=== PATIENT | male | born 1940 | race Caucasian/White ===

== ENCOUNTER 2024-07-26 09:33 | Outpatient (RCR) | payer MEDICARE, OTHER, SELFPAY ==
--- NOTE | 2024-07-04 15:05 | ST.OPIE ---
Visit Care Team Role Provider Type Brianna Escobedo MD Attending Provider Non-Staff Family Provider Primary Care Provider Referring Provider Specialty: Internal Medicine Address: [address] [place] [address], [place], [place], [facility] Email: Speech-Language Pathology Initial Evaluation MALE MODEL Adult Cognitive Linguistic Eval Start: 07/04/24 14:36 Freq: Status: Active Protocol: Document 07/04/24 14:36 SS (Rec: 07/04/24 15:05 SS [id number]) Adult Cognitive Linguistic Evaluation Session Time Visit Start Time 13:45 Visit Stop Time 14:30 Total Visit Minutes 45 Visit Information Visit Number 1 Plan of Care Dates 07/04/24-10/03/24 Insurance Information Medicare (kx modifier after 19 visits) Referral Referring Provider Brianna Escobedo Reason for Referral Subdural hematoma follow-up Setting Assessment Location Outpatient Care Visit Type Note Type Initial evaluation Next Note Type Next Note Type Treatment Note Patient Information Identification Type Name Patient History Darien Logan is an 84-year-old male presenting to this clinic for an MALE MODEL evaluation of cognition s/p subdural hematoma at the referral of Dr Freda Escobedo. Pt was hospitalized at [facility] for subdural hematoma evacuation 06/10-06/17 following fall resulting in head trauma. Per pt and family, CT scan following procedure did not show additional bleeding. Pt reported no other significant medical and surgical history other than hearing loss, heart valve procedure, and knee replacement. Pt reported he did not receive speech therapy services at the time of his hospitalization. Per pt report , he is still independently performing IADLs, including medication management and financial retirement plan specialist. Pt?s partner expressed mild concern with his short-term memory, though denied change from baseline. Additionally, pt denied changes to speech, language, voice, and swallowing function. He currently lives at home with his partner, Ale, and is retired from working as an chemical engineering technologist. Education Level BS Occupation Status Retired from [employer] Hearing Hearing Level Hearing Aids Vision Vision Status Not Impaired Previous Therapy Previous Speech-Language Therapy No Subjective Patient Report Pt arrived to the session on time. He is accompanied by his partner Ale and daughter Yanira. He was engaged and motivated throughout. He was able to provide case history without difficulty. No changes noted to speech, language, or voice during informal assessment. Mental Status Alert,Responsive,Cooperative Assessment Oral Motor Examination Completed No Results No concerns for oral motor structure/function at this time. Speech was 100% intelligible and oral and facial structures appeared symmetrical and functioning WNL. Informal Assessment Receptive Language Normal Yes Expressive Language Normal Yes Pragmatic Language Normal Yes Speech Normal Yes Cognition Normal No Cognitive Impairment(s) Short-term memory Formal Assessment Standardized Test/Screener Type Cognitive Linguistic Quick Test (CLQT) Administration Complete Results The Cognitive Linguistic Quick Test (CLQT) was administered to obtain information regarding the patient?s cognitive abilities. The CLQT assesses five cognitive domains: attention, memory, executive functioning, language, and visuospatial skills. A domain and severity rating is then calculated. Scores fall within a WNL ( within normal limits) to severe range describing the patient?s level of impairment. Additionally, a composite severity range is calculated. A composite severity score of 3.5-4.0 is WNL, 2.5 -3.4 is mild, 1.5-2.4 is moderate, and 1.0-1.4 is severe. The patient scored as follows: Attention: 187 WNL Memory: 126 Mild Executive Functionin WNL Language: 28 WNL Visuospatial Skills: 87 WNL Clock Drawin WNL Composite Severity Rating = 3. 8 WNL Findings/Results Language Function Within normal limits Cognitive Function Mildly impaired Findings Pt demonstrated mild cognitive -communication impairment (R41 .841) in the area of short- term memory. He is at an elevated risk of making critical errors with tasks such as medication management, time/schedule management, financial retirement plan specialist, and completion of meat products demonstrator , as well as everyday tasks that require adequate skills in the areas of immediate/ delayed memory. He would benefit from skilled ST services with the goal of providing education and training in the use of cognitive-communication compensatory strategies targeting immediate and delayed memory for improved independence and accuracy with IADLs as well as education re : holistic lifestyle factors that research has shown positively contribute to cognitive function. Concomitant Factors Concomitant Factors Hearing loss Comment Rcommended pt wear hearing aids to next session. Prognosis Prognosis Good Based on Cognitive status,Family support,Duration of symptoms/ severity Plan of Care Speech-Language Treatment Yes Frequency Once a week Duration 1-2 months Patient/Caregiver Education Patient expressed understanding of evaluation, Patient expressed agreement with goals and treatment plans Short Term Goals 1. Patient will receive education re: holistic lifestyle factors supported by research to have a positive impact on cognition and will demonstrate understanding in verbal teach-back. 2. Patient will participate in internal memory strategy (ex: visualization and rehearsal) education and training, in order to select 1-2 that are best fit for daily needs. 3. Patient will explore external compensatory strategies through education and application, in order to select 1-2 that are a best fit for daily needs (ex: calendar and writing lists). Utility Manager Goals 1. Patient will complete cognitive communication tasks with independent use of strategies or tools as needed to complete baseline tasks without difficulty. 2. Pt will demonstrate improved memory confidence, compared to baseline of 03/25, through memory education, adaptation, and application to real life.
--- NOTE | 2024-07-04 15:06 | ST.OPPOC ---
Physical, Occupational & Speech Therapy At [facility] Visit Care Team Role Provider Type Brianna Escobedo MD Attending Provider Non-Staff Family Provider Primary Care Provider Referring Provider Address: [address] [place] [address], [place], [address] Speech Pathology Plan of Care Plan of Care Dates 07/04/24-10/03/24 Referring Provider Brianna Escobedo Patient History Darien Logan is an 84-year-old male presenting to this clinic for an OPERATOR CAVITY PUMP evaluation of cognition s/p subdural hematoma at the referral of Dr. Brianna Escobedo. Pt was hospitalized at [facility] for subdural hematoma evacuation 06/10-06/17 following fall resulting in head trauma. Per pt and family, CT scan following procedure did not show additional bleeding. Pt reported no other significant medical and surgical history other than hearing loss, heart valve procedure, and knee replacement. Pt reported he did not receive speech therapy services at the time of his hospitalization. Per pt report, he is still independently performing IADLs, including medication management and oracle financials developer. Pt?s partner expressed mild concern with his short-term memory, though denied change from baseline. Additionally, pt denied changes to speech, language, voice, and swallowing function . He currently lives at home with his partner, Ale, and is retired from working as an senior principal software engineer. Short Term Goals 1. Patient will receive education re: holistic lifestyle factors supported by research to have a positive impact on cognition and will demonstrate understanding in verbal teach-back. 2. Patient will participate in internal memory strategy (ex: visualization and rehearsal) education and training, in order to select 1-2 that are best fit for daily needs. 3. Patient will explore external compensatory strategies through education and application, in order to select 1-2 that are a best fit for daily needs (ex: calendar and writing lists). Travel Counselor Goals 1. Patient will complete cognitive communication tasks with independent use of strategies or tools as needed to complete baseline tasks without difficulty. 2. Pt will demonstrate improved memory confidence, compared to baseline of 03/25, through memory education, adaptation, and application to real life. Comment: Electronically Signed by: KALEB Deluna 07/04/24 4674 If you are in agreement with this Plan of Care, please return a signed and dated copy. I have reviewed this Plan of Care and certify that the skilled therapy services above are required to meet the patient?s needs. Physician Signature Date Printed Name and Credentials Clinical Instructor Signature Printed Name and Credentials
--- NOTE | 2024-07-26 10:30 | PT.OPPOC ---
Physical, Occupational & Speech Therapy At [facility] Current Diagnoses Traumatic subdural hemorrhage with loss of consciousness status unknown, subsequent encounter (07/26/24) Visit Care Team Role Provider Type Brianna Escobedo MD Attending Provider Non-Staff Family Provider Primary Care Provider Referring Provider Specialty: Internal Medicine Address: [address] [place] [address], [place], [place], [facility] Email: Plan Of Care PT-OP-B Current Condition Start: 07/26/24 10:50 Freq: Status: Active Protocol: Document 07/26/24 09:45 DCW (Rec: 07/27/24 09:48 DCW [id number]) Current Condition History of Current Condition Onset Date Two month history History of Current Condition Pt is an 84 year old male presenting to skilled therapy two months s/p traumatic subdural hematoma. Pt and were visiting [facility], where pt tripped and fell, hitting his head. Thought he was fine, they ended up returning home a few days later, pt then became dizzy and fell again, after which EMS were called. Pt was taken to ED, he received a CT, and was found to have a large subdural hematoma. Pt was transported to [facility] on 06/09/24, underwent surgery on 06/10/24, and then five days later, underwent a cath procedure to cauterize another blood vessel , and was finally discharged home 06/17/24. Since that time, pt has been doing very well, has been working with a small engine trainer in-home 3x/ week. Pt notes he is feels well, up, mobile, back to driving around town. No further falls, pt's only real complaint is that he is noticing that he energy is a bit lower than usual, needs to rest a bit more often than usual. PT-OP-T Assessment and Plan Start: 07/26/24 10:50 Freq: Status: Active Protocol: Document 07/26/24 09:45 DCW (Rec: 07/27/24 12:41 DCW [id number]) Physical Therapy Assessment Evaluation Complexity Number of Personal Factors/Comorbidities 1-2 Number of Body Systems Impaired 1-2 Clinical Presentation at Evaluation Stable Assessment Summary Assessment Pt presents with a largely unremarkable evaluation. Vines test score of 53/56 and FGA score of 24/30 both indicate pt is not at an increased risk of falls. Pt presents with good mobility and gross motor strength. Pt describes no functional limitations stemming from recent subdural hematoma. Pt's only complaint is general decrease in energy. Pt already working with small engine trainer 3x/week in home, and is switching to going to meet with him in gym this week. Pt displays no indication of further need for skilled therapeutic intervention. Pt jessica be discharged from PT at this time. Physical Therapy Plan Frequency and Duration Frequency of Treatment 1x/Week Plan of Care Start Date 07/26/24 Plan of Care End Date 07/27/24 Discharge Physical Therapy Discharge Comments No further skilled PT indicated at this time. Next Visit Focus/Plan Next Note Type Discharge Summary Plan of Care Dates Plan of Care Start Date 07/26/24 Plan of Care End Date 07/27/24 Electronically Signed by: Tyler Nagy, PT 07/27/24 8143 If you are in agreement with this Plan of Care, please return a signed and dated copy. I have reviewed this Plan of Care and certify that the skilled therapy services above are required to meet the patient?s needs. Physician Signature Date Printed Name and Credentials Clinical Instructor Signature Printed Name and Credentials
--- NOTE | 2024-07-26 10:30 | PT.OIE ---
Current Diagnoses Traumatic subdural hemorrhage with loss of consciousness status unknown, subsequent encounter (07/26/24) Visit Care Team Role Provider Type Brianna Escobedo MD Attending Provider Non-Staff Family Provider Primary Care Provider Referring Provider Specialty: Internal Medicine Address: [address] [place] [address], [address] Email: Physical Therapy Initial Evaluation PT-OP-A Visit Information Start: 07/26/24 10:50 Freq: Status: Active Protocol: Document 07/26/24 09:45 DCW (Rec: 07/26/24 11:52 DCW [id number]) Out-Patient Physical Therapy Visit Information Visit Information Visit Type Initial Evaluation Visit Start Time 09:45 Visit Stop Time 10:30 Visit Number 1 Number of DRAWER WAXER Visits 0 Evaluation Information Evaluation Date 07/26/24 PT-OP-B Current Condition Start: 07/26/24 10:50 Freq: Status: Active Protocol: Document 07/26/24 09:45 DCW (Rec: 07/27/24 09:48 DCW [id number]) Current Condition History of Current Condition Onset Date Two month history History of Current Condition Pt is an 84 year old male presenting to skilled therapy two months s/p traumatic subdural hematoma. Pt and were visiting [facility], where pt tripped and fell, hitting his head. Thought he was fine, they ended up returning home a few days later, pt then became dizzy and fell again, after which EMS were called. Pt was taken to ED, he received a CT, and was found to have a large subdural hematoma. Pt was transported to [facility] on 06/09/24, underwent surgery on 06/10/24, and then five days later, underwent a cath procedure to cauterize another blood vessel , and was finally discharged home 06/17/24. Since that time, pt has been doing very well, has been working with a personal development mentor in-home 3x/ week. Pt notes he is feels well, up, mobile, back to driving around town. No further falls, pt's only real complaint is that he is noticing that he energy is a bit lower than usual, needs to rest a bit more often than usual. PT-OP-C Subjective Start: 07/26/24 10:50 Freq: Status: Active Protocol: Document 07/26/24 09:45 DCW (Rec: 07/27/24 09:48 DCW [id number]) OP-PT Subjective Patient Comments Patient Comments Pt attending physical therapy because I was told to. PT-OP-D Balance Start: 07/26/24 10:50 Freq: Status: Active Protocol: Document 07/26/24 09:45 DCW (Rec: 07/26/24 11:56 DCW [id number]) Balance Tests Vines Balance Test Vines Balance Test Score 53/56 Vines Balance Assessment Evaluation Sitting to Standing Ability Independent w/Hands Unsupported Stance Safely- 2 minutes Sitting Unsupported, Feet on Floor Safely- 2 minutes Standing to Sitting Ability Safely, Minimal Hand Use Transfer Ability Safely, Minimal Hand Use Unsupported Stance- Eyes Closed Safely, 10 seconds Unsupported Stance- Eyes Open Independent, 1 minute Reaching Forward Standing Safely, 5 inches Pick- Up Object From Floor Independent/Safe Look Behind Shoulder - Standing Shifts Weight Well Turning 360 Degrees Turns Bilateral, < 4 secs Unsupported Stance, Alternating Feet on (I)- 8 Steps in 20 secs Stair Unsupported Tandem Stance Achieves Tandem Unilateral Leg Stance Lifts Leg/Holds 5-10 secs Total Score Vines Total Score (out of 56 points) 53 Vines Impairment Rating 1 to 19% Impaired (Score 45-55 ) PT-OP-E Functional Tests Start: 07/26/24 10:50 Freq: Status: Active Protocol: Document 07/26/24 09:45 DCW (Rec: 07/26/24 11:56 DCW [id number]) Functional Tests 30 Second Sit to Stand Test Score x10 repetitions Comments UEs on thighs Functional Gait Assessment Score 24/30 Functional Gait Assessment Impairment 20 to <40% Impaired (Score 19- Rating 24) PT-OP-M Strength Start: 07/26/24 10:50 Freq: Status: Active Protocol: Document 07/26/24 09:45 DCW (Rec: 07/26/24 15:17 DCW [id number]) Hip Strength Hip Manual Muscle Testing Right Flexion (L2) 4+ Good+ Abduction 4+ Good+ Adduction 4 Good External Rotation 4+ Good+ Internal Rotation 4+ Good+ Left Flexion (L2) 4+ Good+ Abduction 4+ Good+ Adduction 4 Good External Rotation 4+ Good+ Internal Rotation 4+ Good+ Knee Strength Knee Manual Muscle Testing Right Flexion (S2) 4+ Good+ Extension (L3) 4+ Good+ Left Flexion (S2) 4+ Good+ Extension (L3) 4+ Good+ Ankle/Foot Strength Ankle and Foot Manual Muscle Testing Right Dorsiflexion (L4) 4+ Good+ Plantarflexion (S1) 4 Good Left Dorsiflexion (L4) 4+ Good+ Plantarflexion (S1) 4 Good PT-OP-T Assessment and Plan Start: 07/26/24 10:50 Freq: Status: Active Protocol: Document 07/26/24 09:45 DCW (Rec: 07/27/24 12:41 DCW [id number]) Physical Therapy Assessment Evaluation Complexity Number of Personal Factors/Comorbidities 1-2 Number of Body Systems Impaired 1-2 Clinical Presentation at Evaluation Stable Assessment Summary Assessment Pt presents with a largely unremarkable evaluation. Vines test score of 53/56 and FGA score of 24/30 both indicate pt is not at an increased risk of falls. Pt presents with good mobility and gross motor strength. Pt describes no functional limitations stemming from recent subdural hematoma. Pt's only complaint is general decrease in energy. Pt already working with personal development mentor 3x/week in home, and is switching to going to meet with him in gym this week. Pt displays no indication of further need for skilled therapeutic intervention. Pt jessica be discharged from PT at this time. Physical Therapy Plan Frequency and Duration Frequency of Treatment 1x/Week Plan of Care Start Date 07/26/24 Plan of Care End Date 07/27/24 Discharge Physical Therapy Discharge Comments No further skilled PT indicated at this time. Next Visit Focus/Plan Next Note Type Discharge Summary
--- NOTE | 2024-07-26 10:43 | PT.OPDS ---
Current Diagnoses Traumatic subdural hemorrhage with loss of consciousness status unknown, subsequent encounter (07/26/24) Visit Care Team Role Provider Type Brianna Escobedo MD Attending Provider Non-Staff Family Provider Primary Care Provider Referring Provider Specialty: Internal Medicine Address: [address] [place] [address], [id number] Email: Visit Number Visit Number 1 Discharge Summary PT-OP-B Current Condition Start: 07/26/24 10:50 Freq: Status: Active Protocol: Document 07/26/24 09:45 DCW (Rec: 07/27/24 09:48 DCW [id number]) Current Condition History of Current Condition Onset Date Two month history History of Current Condition Pt is an 84 year old male presenting to skilled therapy two months s/p traumatic subdural hematoma. Pt and were visiting [facility], where pt tripped and fell, hitting his head. Thought he was fine, they ended up returning home a few days later, pt then became dizzy and fell again, after which EMS were called. Pt was taken to ED, he received a CT, and was found to have a large subdural hematoma. Pt was transported to [facility] on 06/09/24, underwent surgery on 06/10/24, and then five days later, underwent a cath procedure to cauterize another blood vessel , and was finally discharged home 06/17/24. Since that time, pt has been doing very well, has been working with a personal lines account manager in-home 3x/ week. Pt notes he is feels well, up, mobile, back to driving around town. No further falls, pt's only real complaint is that he is noticing that he energy is a bit lower than usual, needs to rest a bit more often than usual. PT-OP-C Subjective Start: 07/26/24 10:50 Freq: Status: Active Protocol: Document 07/26/24 09:45 DCW (Rec: 07/27/24 09:48 DCW [id number]) OP-PT Subjective Patient Comments Patient Comments Pt attending physical therapy because I was told to. PT-OP-D Balance Start: 07/26/24 10:50 Freq: Status: Active Protocol: Document 07/26/24 09:45 DCW (Rec: 07/26/24 11:56 DCW [id number]) Balance Tests Vines Balance Test Vines Balance Test Score 53/56 Vines Balance Assessment Evaluation Sitting to Standing Ability Independent w/Hands Unsupported Stance Safely- 2 minutes Sitting Unsupported, Feet on Floor Safely- 2 minutes Standing to Sitting Ability Safely, Minimal Hand Use Transfer Ability Safely, Minimal Hand Use Unsupported Stance- Eyes Closed Safely, 10 seconds Unsupported Stance- Eyes Open Independent, 1 minute Reaching Forward Standing Safely, 5 inches Pick- Up Object From Floor Independent/Safe Look Behind Shoulder - Standing Shifts Weight Well Turning 360 Degrees Turns Bilateral, < 4 secs Unsupported Stance, Alternating Feet on (I)- 8 Steps in 20 secs Stair Unsupported Tandem Stance Achieves Tandem Unilateral Leg Stance Lifts Leg/Holds 5-10 secs Total Score Vines Total Score (out of 56 points) 53 Vines Impairment Rating 1 to 19% Impaired (Score 45-55 ) PT-OP-E Functional Tests Start: 07/26/24 10:50 Freq: Status: Active Protocol: Document 07/26/24 09:45 DCW (Rec: 07/26/24 11:56 [facility] [id number]) Functional Tests 30 Second Sit to Stand Test Score x10 repetitions Comments UEs on thighs Functional Gait Assessment Score 24/30 Functional Gait Assessment Impairment 20 to <40% Impaired (Score 19- Rating 24) PT-OP-M Strength Start: 07/26/24 10:50 Freq: Status: Active Protocol: Document 07/26/24 09:45 DCW (Rec: 07/26/24 15:17 DC [id number]) Hip Strength Hip Manual Muscle Testing Right Flexion (L2) 4+ Good+ Abduction 4+ Good+ Adduction 4 Good External Rotation 4+ Good+ Internal Rotation 4+ Good+ Left Flexion (L2) 4+ Good+ Abduction 4+ Good+ Adduction 4 Good External Rotation 4+ Good+ Internal Rotation 4+ Good+ Knee Strength Knee Manual Muscle Testing Right Flexion (S2) 4+ Good+ Extension (L3) 4+ Good+ Left Flexion (S2) 4+ Good+ Extension (L3) 4+ Good+ Ankle/Foot Strength Ankle and Foot Manual Muscle Testing Right Dorsiflexion (L4) 4+ Good+ Plantarflexion (S1) 4 Good Left Dorsiflexion (L4) 4+ Good+ Plantarflexion (S1) 4 Good PT-OP-T Assessment and Plan Start: 07/26/24 10:50 Freq: Status: Active Protocol: Document 07/26/24 09:45 DCW (Rec: 07/27/24 12:41 DCW [id number]) Physical Therapy Assessment Evaluation Complexity Number of Personal Factors/Comorbidities 1-2 Number of Body Systems Impaired 1-2 Clinical Presentation at Evaluation Stable Assessment Summary Assessment Pt presents with a largely unremarkable evaluation. Vines test score of 53/56 and FGA score of 24/30 both indicate pt is not at an increased risk of falls. Pt presents with good mobility and gross motor strength. Pt describes no functional limitations stemming from recent subdural hematoma. Pt's only complaint is general decrease in energy. Pt already working with personal lines account manager 3x/week in home, and is switching to going to meet with him in gym this week. Pt displays no indication of further need for skilled therapeutic intervention. Pt jessica be discharged from PT at this time. Physical Therapy Plan Frequency and Duration Frequency of Treatment 1x/Week Plan of Care Start Date 07/26/24 Plan of Care End Date 07/27/24 Discharge Physical Therapy Discharge Comments No further skilled PT indicated at this time. Next Visit Focus/Plan Next Note Type Discharge Summary
== END 2024-08-10 09:35 | disposition home or self-care (01) ==
LOC: PHYS 09:33
PROVIDERS: Family Provider Internal Medicine; PCP Internal Medicine; Referring Provider Internal Medicine; Visit Provider Internal Medicine
DX: S06.5XAD Traumatic subdural hemorrhage with loss of consciousness status unknown, subsequent encounter (principal)
CPT/HCPCS: 97161